=== PATIENT | male | born 1960 | race Hispanic/Latino ===

== ENCOUNTER 2021-06-16 05:59 | Observation (INO) | payer OTHER ==
[2021-06-10 12:42] LABS: BASOPHILS % (AUTO) 0.6 % (0.0-5.0); EOSINOPHILS % (AUTO) 4.2 % (0.0-8.0); HEMATOCRIT 41.4 % (42-54); LYMPHOCYTES % (AUTO) 18.8 % (21.0-51.0); MEAN CORPUSCULAR HGB CONC 30.9 g/dL (32.0-36.0); MONOCYTES % (AUTO) 9.5 % (3.0-13.0); NEUTROPHILS % (AUTO) 66.3 % (40.0-77.0); PLATELET COUNT (AUTO) 306 K/uL (130-400); RED BLOOD CELL COUNT(AUTO) 4.93 MIL/uL (4.50-6.20); RED CELL DISTRIBUTION WIDTH 14.2 % (11.0-15.5); WHITE BLOOD COUNT (AUTO) 7.1 K/uL (4.8-10.8)
[2021-06-10 13:01] LABS: INR 1.03 (0.85-1.15); PROTHROMBIN TIME 11.2 SEC (9.6-11.6)
[2021-06-10 13:03] LABS: PARTIAL THROMBOPLASTIN TIME 28.8 SEC (26.3-35.5)
[2021-06-10 13:10] LABS: POTASSIUM 4.5 mmol/L (3.5-5.1)
[2021-06-11] MEDS: CEFAZOLIN SODIUM 1 GM VIAL IVP SCH (10:30)
[2021-06-15 11:17] VITALS: BP 150/80
[~2021-06-16] VITALS: Ht 167.6 cm; Wt 114.7 kg
[2021-06-16] VITALS (21 sets, daily range): BP systolic 125–158; BP diastolic 70–119
[~2021-06-16 05:59] MED LIST: AMLO-257 PO; ATOR20TA65 PO; CELE200 PO; LOSA100T58 PO; METF-446 PO; METO-391 PO; OMEP40CA21 PO; ROPIVICAINE 250MG+KETOROLAC 15MG+EPINEPHRINE 0.3+CLONIDINE 80 IV PRN
[2021-06-16] MEDS: LACTATED RINGERS 1000ML 1,000 ML IV SCH ×2 (07:35→15:45)
[2021-06-16] MEDS ORDERED: TRANEXAMIC ACID 1000MG/10ML ONE (07:37)
[2021-06-16] MEDS ORDERED: LIDOCAINE PF 100MG/5ML (2%) SYRINGE 5ML ONE (07:49)
[2021-06-16] MEDS ORDERED: ROCURONIUM 10MG/1ML SYR 10 MG/ML ML ONE ×2 (07:50→09:30)
[2021-06-16] MEDS ORDERED: ONDANSETRON 4MG INJ ONE (07:50)
[2021-06-16] MEDS ORDERED: NEOSTIGMINE 5MG/5ML SYR IV ONE (07:50)
[2021-06-16] MEDS ORDERED: MIDAZOLAM HCL 1 MG/ML 2ML VIAL ONE ×2 (07:50→08:35)
[2021-06-16] MEDS ORDERED: PROPOFOL 10 MG/ML 20ML VIAL IV ONE (07:50)
[2021-06-16] MEDS ORDERED: GLYCOPYRROLATE 1 MG/5 ML SYRINGE ONE (07:50)
[2021-06-16] MEDS ORDERED: DEXAMETHASONE SOD PHOSPHATE 10MG/ML 1ML VIAL ONE (07:50)
[2021-06-16] MEDS ORDERED: SUCCINYLCHOLINE CHLORIDE 20 MG/ML 10 ML VIAL ONE (07:50)
[2021-06-16] MEDS ORDERED: FENTANYL CITRATE PF 50 MCG/1 ML 2ML VIAL ONE ×3 (07:51→11:38)
[2021-06-16] MEDS ORDERED: MEPERIDINE-PF 25 MG/ML SYG ONE (07:52)
[2021-06-16] MEDS ORDERED: ROPIVACAINE 0.5% 5MG/ML 30ML IJ ONE (07:53)
[2021-06-16] MEDS: LOSARTAN 100 MG TABLET PO SCH (09:00)
[2021-06-16] MEDS ORDERED: OXYCODONE HCL 5 MG TAB PO PRN (09:00)
[2021-06-16] MEDS: FAMOTIDINE 20MG TAB PO SCH ×2 (09:00→21:08)
[2021-06-16] MEDS: ASPIRIN 81 MG EC TAB PO SCH ×2 (09:00→21:07)
[2021-06-16] MEDS ORDERED: MORPHINE 4 MG SYG IVP PRN (09:00)
[2021-06-16] MEDS: AMLODIPINE 5 MG TAB PO SCH (09:00)
[2021-06-16] MEDS: METOPROLOL SUCCINATE 50 MG TAB.SR.24H PO SCH (09:00)
[2021-06-16] MEDS: ACETAMINOPHEN 500 MG TABLET PO SCH ×2 (09:00→17:31)
[2021-06-16] MEDS ORDERED: ONDANSETRON 4MG INJ IVP PRN (09:00)
[2021-06-16] MEDS: POLYETHYLENE GLYCOL 3350 17 GM POWD.PACK PO SCH (09:00)
[2021-06-16] MEDS: CELECOXIB 200 MG CAP PO SCH ×2 (09:00→21:08)
[2021-06-16] MEDS ORDERED: EPHEDRINE SULFATE 50 MG/ML AMPULE ONE (09:01)
[2021-06-16] MEDS: CEFAZOLIN SODIUM 1 GM VIAL IVP SCH ×2 (09:06→17:32)
[2021-06-16] MEDS ORDERED: PHENYLEPHRINE HCL 10 MG/ML 1ML VIAL IV ONE (09:28)
[2021-06-16] MEDS ORDERED: KETOROLAC 30MG VIAL (30MG/ML) ONE (10:54)
[2021-06-16] MEDS ORDERED: LIDOCAINE HCL-MPF 1% 5ML AMP IJ ONE (11:08)
[2021-06-16] MEDS: INSULIN HUMULIN R 100 UNIT/ML 3ML SQ SCH ×4 (11:30→21:09)
[2021-06-16] MEDS: TRAMADOL HCL 50 MG TABLET PO SCH ×3 (15:48→23:14)
[2021-06-16] MEDS: METFORMIN HCL 500 MG TABLET PO SCH ×2 (15:54→17:31)
[2021-06-16] MEDS: 0.9%NACL 1000ML 1,000 ML IV SCH ×2 (17:32→19:00)
[2021-06-16] MEDS: HYDROCODONE/ACETAMINOPHEN 5/325 MG TAB PO PRN (21:08)
[2021-06-17] MEDS ORDERED: CEFAZOLIN SODIUM 1 GM VIAL ONE (01:28)
[2021-06-17] MEDS: CEFAZOLIN SODIUM 1 GM VIAL IVP SCH (01:32)
[2021-06-17] MEDS: ACETAMINOPHEN 500 MG TABLET PO SCH ×2 (01:32→09:00)
[2021-06-17 03:22] VITALS: BP 118/79
[2021-06-17 04:42] LABS: CREATININE 1.3 mg/dL (0.5-1.5); POTASSIUM 3.8 mmol/L (3.5-5.1)
[2021-06-17 04:43] LABS: HEMATOCRIT 34.8 % (42-54); MEAN CORPUSCULAR HEMOGLOBIN 26.4 pg (27.0-33.0); MEAN CORPUSCULAR HGB CONC 32.2 g/dL (32.0-36.0); MEAN CORPUSCULAR VOLUME 82.1 fL (79-99); RED BLOOD CELL COUNT(AUTO) 4.24 MIL/uL (4.50-6.20); RED CELL DISTRIBUTION WIDTH 14.2 % (11.0-15.5); WHITE BLOOD COUNT (AUTO) 17.1 K/uL (4.8-10.8)
[2021-06-17] MEDS: INSULIN HUMULIN R 100 UNIT/ML 3ML SQ SCH ×3 (04:52→16:30)
[2021-06-17] MEDS: TRAMADOL HCL 50 MG TABLET PO SCH ×2 (05:54→13:06)
[2021-06-17 08:02] VITALS: BP 120/75
[2021-06-17] MEDS: CELECOXIB 200 MG CAP PO SCH (08:28)
[2021-06-17] MEDS: METOPROLOL SUCCINATE 50 MG TAB.SR.24H PO SCH (08:28)
[2021-06-17] MEDS: FAMOTIDINE 20MG TAB PO SCH (08:29)
[2021-06-17] MEDS: METFORMIN HCL 500 MG TABLET PO SCH (08:29)
[2021-06-17] MEDS: ASPIRIN 81 MG EC TAB PO SCH (08:29)
[2021-06-17] MEDS: POLYETHYLENE GLYCOL 3350 17 GM POWD.PACK PO SCH (08:29)
[2021-06-17] MEDS: AMLODIPINE 5 MG TAB PO SCH (08:29)
[2021-06-17] MEDS: LOSARTAN 100 MG TABLET PO SCH (08:34)
[2021-06-17] MEDS: HYDROCODONE/ACETAMINOPHEN 5/325 MG TAB PO PRN (08:35)
[2021-06-17 10:45] VITALS: BP 130/73
[2021-06-17 16:39] VITALS: BP 117/62
[2021-06-19] MEDS ORDERED: BISACODYL 10 MG SUPP.RECT RC PRN (09:00)
== END 2021-06-17 19:15 | disposition home or self-care (01) ==
LOC: DAH 05:59 → DAHIP 06:00 → 4BH 12:41
PROVIDERS: ADMIT Orthopaedic Surgery; ATTEND Orthopaedic Surgery
DX: M17.12 Unilateral primary osteoarthritis, left knee (principal); Z20.822 Contact with and (suspected) exposure to COVID-19; E11.9 Type 2 diabetes mellitus without complications; I10 Essential (primary) hypertension; Z79.899 Other long term (current) drug therapy
CPT/HCPCS: 27447; S2900; 36415; 80048; 82948; 85025; 85027; 85610; 85730; 87635; 87641; 96374; 96376; 97039; C9803; G0378; J0171; J0330; J0690; J0735; J1100; J1815; J1885; J2001; J2175; J2250; J2370; J2405; J2704; J2710; J2795; J3010; J3490; J7120